=== PATIENT | female | born 1990 | race Caucasian/White ===

== ENCOUNTER 2022-11-29 14:00 | Outpatient (RCR) | payer OTHER, SELFPAY | END 2022-11-29 14:05 | disposition home or self-care (01) | LOC: PT 14:00 | PROVIDERS: PCP Obstetrics & Gynecology; Visit Provider Orthopaedic Surgery Adult Reconstructive Orthopaedic Surgery | DX: M25.572 Pain in left ankle and joints of left foot (principal); S93.402A Sprain of unspecified ligament of left ankle, initial encounter | CPT/HCPCS: 97110; 97112; 97140; 97163; 97164; 97530 ==